=== PATIENT | male | born 1955 | race Caucasian/White ===

== ENCOUNTER 2024-05-23 13:43 | Inpatient (IN) | payer OTHER ==
[2024-05-23 14:32] VITALS: BMI 28.1
[2024-05-23] MEDS ORDERED: POLYETHYLENE GLYCOL (HEALTHYLAX) 3350 17 GM PACKET PO PRN (15:05)
[2024-05-23] MEDS ORDERED: MAG HYDROX/AL HYDROX/SIMETH 30 ML UNIT-DOSE CUP PO PRN (15:05)
[2024-05-23] MEDS ORDERED: NALOXONE (NARCAN) HCL 4 MG/0.1 ML SPRAY NS PRN (15:05)
[2024-05-23] MEDS ORDERED: BISMUTH SUBSALICYLATE 524 MG/30 ML PO PRN (15:05)
[2024-05-23] MEDS ORDERED: guaiFENesin 600 MG TABLET.ER (FP) PO PRN (15:05)
[2024-05-23] MEDS ORDERED: BENZONATATE 200 MG CAPSULE PO PRN (15:05)
[2024-05-23] MEDS ORDERED: P-EPHED 60MG/TRIPROLIDI 2.5MG TABLET PO PRN (15:05)
[2024-05-23] MEDS ORDERED: ONDANSETRON *ODT* 4 MG TABLET SL PRN (15:05)
[2024-05-23] MEDS ORDERED: MAGNESIUM HYDROX 2400MG/30ML ORAL SUSPENSION 30 ML CUP PO PRN (15:05)
[2024-05-23] MEDS ORDERED: LOPERAMIDE HCL 2 MG CAPSULE PO PRN (15:05)
[2024-05-23] MEDS ORDERED: BENZOCAINE/MENTHOL (CHLORASEPTIC ) LOZENGE MM PRN (15:05)
[2024-05-23] MEDS ORDERED: IBUPROFEN 400 MG TABLET (FP) PO PRN (15:05)
[2024-05-23] MEDS: IBUPROFEN 600 MG TABLET (FP) PO PRN (18:41)
[2024-05-23] MEDS: METHOCARBAMOL 500 MG TABLET PO ONE (18:41)
[2024-05-23] MEDS: MELATONIN 5 MG TABLETS PO SCH (21:26)
[2024-05-23] MEDS: THIAMINE 100 MG TABLET PO SCH (21:26)
[2024-05-24] MEDS ORDERED: cloNIDine HCL 0.1 MG TABLET PO PRN (07:25)
[2024-05-24] MEDS: methaDONE HCL 10 MG TABLET (FOR DETOX USE ONLY) PO ONE (08:04)
[2024-05-24] MEDS: methaDONE HCL 10 MG TABLET (FOR DETOX USE ONLY) PO PRN (09:36)
[2024-05-24 10:02] LABS: HEMATOCRIT 34.3 % (35.4-49); HEMOGLOBIN 11.8 GM/dL (11.7-16.9); MCH 33.6 pg (25.7-33.7); MCHC 34.5 g/dl (32.0-35.9); MEAN CELL VOLUME 97.5 fl (80-96); MEAN PLT VOLUME 9.6 fl (7.5-11.1); PLATELET COUNT 135 10^3/uL (134-434); RBC 3.52 M/mm3 (4.00-5.60); RDW 12.9 % (11.9-15.9); WHITE BLOOD COUNT 4.3 K/mm3 (4.0-10.0)
[2024-05-24 10:06] LABS: POTASSIUM 4.3 mmol/L (3.5-5.1)
[2024-05-24 10:08] LABS: ALBUMIN 3.1 g/dl (3.4-5.0); CALCIUM 8.7 mg/dL (8.5-10.1)
[2024-05-24 10:11] LABS: CREATININE 0.9 mg/dL (0.55-1.3)
[2024-05-24 10:13] LABS: BILIRUBIN,TOTAL 0.7 mg/dL (0.2-1); TOT PROT 6.9 g/dl (6.4-8.2)
[2024-05-24] MEDS: ASPIRIN 81 MG CHEWABLE TABLETS PO SCH (10:50)
[2024-05-24] MEDS: CLOPIDOGREL BISULFATE 75 MG TABLET (FP) PO SCH (10:50)
[2024-05-24] MEDS: PRENATAL VITAMINS W/ FOLIC ACID TABLET (FP) PO SCH (10:50)
[2024-05-24] MEDS: metoPROLOL SUCCINATE 25 MG TAB.SR.24H (FP) PO SCH (10:50)
[2024-05-24] MEDS: FOLIC ACID 1 MG TABLET (FP) PO SCH (10:50)
[2024-05-24] MEDS: POTASSIUM PO SCH (10:55)
[2024-05-24] MEDS: MAGNESIUM ASPARTATE PO SCH (10:55)
[2024-05-24] MEDS: [UNRECOGNIZED DRUG - OTHER] PO SCH (10:55)
[2024-05-24] MEDS: ALLOPURINOL 100 MG TABLET (FP) PO SCH (11:00)
[2024-05-24] MEDS: BICTEGRAV/EMTRICIT/TENOFOV (BIKTARVY) 50-200-25 MG TABLET PO SCH (12:13)
[2024-05-24] MEDS: FLU VACCINE (FLULAVAL) PF 45 MCG/0.5 ML SYRINGE 2024-2025 IM ONE (12:13)
[2024-05-24] MEDS: ISOSORBIDE DINITRATE PO SCH (12:40)
[2024-05-24] MEDS: ISOSORBIDE DINITRATE 20 MG TABLET PO SCH (14:13)
[2024-05-24] MEDS: ATORVASTATIN CA 80 MG TABLET (FP) PO SCH (21:32)
[2024-05-24] MEDS: ACETAMINOPHEN 325 MG TABLET (FP) PO PRN (21:32)
[2024-05-25] MEDS: clonazePAM 0.5 MG ODT TABLETS SL PRN (00:19)
[2024-05-25] MEDS: TAMSULOSIN HCL 0.4 MG CAP PO SCH (07:52)
[2024-05-25] MEDS ORDERED: LORazepam 1 MG TABLET PO PRN (08:26)
[2024-05-25] MEDS: LORazepam 2 MG TABLET PO SCH (11:14)
[2024-05-25] MEDS ORDERED: methaDONE HCL 10 MG TABLET (FOR DETOX USE ONLY) PO ONE (11:24)
[2024-05-25] MEDS ORDERED: PNEUMOC 20-VAL CONJ-DIP CRM/PF 0.5 ML SYRINGE IM ONE (16:23)
[2024-05-25] MEDS: cloNIDine HCL 0.1 MG TABLET PO PRN (21:22)
[2024-05-26] MEDS: methaDONE HCL 10 MG TABLET (FOR DETOX USE ONLY) PO ONE (09:38)
[2024-05-26] MEDS: PNEUMOC 20-VAL CONJ-DIP CRM/PF 0.5 ML SYRINGE IM ONE (11:06)
[2024-05-26] MEDS: LOSARTAN POTASSIUM 50 MG TABLET PO SCH (15:43)
[2024-05-27] MEDS: LORazepam 1 MG TABLET PO SCH (05:52)
[2024-05-28] MEDS ORDERED: LORazepam 0.5 MG TABLET PO PRN
[2024-05-28] MEDS: cloNIDine HCL 0.1 MG TABLET PO ONE (01:48)
[2024-05-28] MEDS: LORazepam 0.5 MG TABLET PO SCH (05:50)
[2024-05-28] MEDS: methaDONE HCL 10 MG TABLET (FOR DETOX USE ONLY) PO ONE (10:21)
[2024-05-28 20:52] VITALS: RESP 16
[2024-05-29] MEDS: LORazepam 0.5 MG TABLET PO ONE (06:00)
[2024-05-29] MEDS: metoPROLOL SUCCINATE 25 MG TAB.SR.24H (FP) PO SCH (06:05)
[2024-05-29] MEDS: LOSARTAN POTASSIUM 50 MG TABLET PO SCH (06:08)
[2024-05-29 06:25] VITALS: PULSE 60
[2024-05-29 09:32] VITALS: BP 146/69; TEMP 97
[2024-05-29] MEDS: NALOXONE (NYS OPIOID OVERDOSE PROGRAM) 4 MG/0.1 ML SPRAY NS SCH (09:40)
== END 2024-05-29 09:54 | disposition home or self-care (01) | DRG 897 ==
LOC: YASAS 13:43 → Y3N 16:18
PROVIDERS: ADMIT Allergy & Immunology; ATTEND Surgery
PROC: HZ2ZZZZ Detoxification Services for Substance Abuse Treatment (ICD-10-PCS; principal; 2024-05-23)
DX: F11.23 Opioid dependence with withdrawal (principal); F19.282 Other psychoactive substance dependence with psychoactive substance-induced sleep disorder; F10.230 Alcohol dependence with withdrawal, uncomplicated; Z21 Asymptomatic human immunodeficiency virus [HIV] infection status; I25.10 Atherosclerotic heart disease of native coronary artery without angina pectoris; I10 Essential (primary) hypertension; Z95.5 Presence of coronary angioplasty implant and graft; E78.5 Hyperlipidemia, unspecified; M10.9 Gout, unspecified; N40.0 Benign prostatic hyperplasia without lower urinary tract symptoms; Z79.899 Other long term (current) drug therapy; Z62.810 Personal history of physical and sexual abuse in childhood; Z87.891 Personal history of nicotine dependence
CPT/HCPCS: 36415; 80053; 83735; 85027; 86780; 90656; 90677; 93005; 93010; G0008; G0009